=== PATIENT | female | born 1960 | race Caucasian/White ===

== ENCOUNTER 2017-07-27 12:48 | Emergency (ER) | payer OTHER ==
[2017-07-27] MEDS: Ondansetron 4 MG/2 ML SDV IVPUSH ONE (12:56)
[2017-07-27] MEDS: Morphine 10 MG/ML Syringe IVPUSH ONE ×2 (12:57→13:50)
[2017-07-27] MEDS: LORazepam 2 MG/ML SDV IVPUSH ONE (12:58)
[2017-07-27] MEDS: LORazepam 2 MG/ML SDV ONE (12:59)
[2017-07-27] MEDS ORDERED: Sodium Chloride 0.9% 1,000 ML IV SCH (13:00)
[2017-07-27 13:05] LABS: CHLORIDE,CL 103 mmol/L (98-107); SODIUM,NA 140 mmol/L (136-145)
[2017-07-27] MEDS: Midazolam 1 MG/ML 2 ML SDV IVPUSH ONE (13:49)
--- NOTE | 2017-07-27 14:16 | EDM.PDOC ---
ED HPI GENERAL MEDICAL PROBLEM - General Chief Complaint: Trauma Stated Complaint: fall from Horse Time Seen by Provider: 07/27/17 12:58 Source of Information: Reports: Patient, Family History Limitations: Reports: No Limitations - History of Present Illness INITIAL COMMENTS - FREE TEXT/NARRATIVE: Patient brought in by private vehicle for ankle injury complaint. Got on one of her horses bareback. Horse took several steps and crowhopped. Patient slipped off horse and landed on her feet onto the ground, then rolled. Has pain and deformity involving right ankle. Only other pain complaint is mild discomfort in low back. Denies hitting head/LOC. No other injuries reported. - Related Data Allergies Allergy/AdvReac Type Severity Reaction Status Date / Time No Known Allergies Allergy Verified 08/27/13 14:45 Home Meds: Home Meds Venlafaxine HCl [Venlafaxine ER] 75 mg PO DAILY 09/22/13 [History] Past Medical History Psychiatric History: Reports: Other (See Below) (mood disorder) Social & Family History - Family History Family Medical History: Noncontributory - Tobacco Use Smoking Status *Q: Never Smoker - Caffeine Use Caffeine Use: Reports: Coffee - Alcohol Use Alcohol Use History: No - Recreational Drug Use Recreational Drug Use: No Drug Use in Last 12 Months: No Review of Systems - Review of Systems Review Of Systems: See Below Constitutional: Reports: No Symptoms Eyes: Reports: No Symptoms Ears: Reports: No Symptoms Nose: Reports: No Symptoms Mouth/Throat: Reports: No Symptoms Respiratory: Reports: No Symptoms Cardiovascular: Reports: No Symptoms GI/Abdominal: Reports: No Symptoms Genitourinary: Reports: No Symptoms Musculoskeletal: Reports: Back Pain, Foot Pain, Joint Pain Skin: Reports: No Symptoms Neurological: Reports: No Symptoms Psychiatric: Reports: No Symptoms ED EXAM, GENERAL - Physical Exam Exam: See Below Exam Limited By: No Limitations General Appearance: Alert, Moderate Distress Eye Exam: Bilateral Eye: EOMI, PERRL Ears: Normal External Exam, Normal Canal, Hearing Grossly Normal, Normal TMs Nose: Normal Inspection, Normal Mucosa, No Blood Throat/Mouth: Normal Inspection, Normal Lips, Normal Teeth, Normal Gums, Normal Oropharynx, Normal Voice, No Airway Compromise Head: Atraumatic, Normocephalic Neck: Normal Inspection, Supple, Non-Tender, Full Range of Motion Respiratory/Chest: No Respiratory Distress, Lungs Clear, Normal Breath Sounds, No Accessory Muscle Use, Chest Non-Tender Cardiovascular: Normal Peripheral Pulses, Regular Rate, Rhythm, No Edema, No Murmur Peripheral Pulses: 2+: Radial (L), Radial (R), Posterior Tibial (L), Posterior Tibial (R) GI/Abdominal: Normal Bowel Sounds, Soft, Non-Tender, No Distention, Pelvis Stable (Female) Exam: Deferred Rectal (Female) Exam: Deferred Back Exam: Other (discomfort noted lumbar spine). No: CVA Tenderness (L), CVA Tenderness (R), Muscle Spasm, Paraspinal Tenderness Extremities: Normal Capillary Refill, Other (deformity of right ankle noted. Tender. Right leg non-tender proximal to ankle injury. Left lower extremity non -tender/normal ROM. Upper extremities full ROM/Nontender) Neurological: Alert, Oriented, Normal Cognition, No Motor/Sensory Deficits Psychiatric: Normal Affect, Normal Mood Skin Exam: Warm, Dry, Intact, Normal Color ED TRAUMA PROCEDURES - Joint Reduction Site: Other (right ankle) Sedation: Conscious Sedation Pre-Procedure NV Status: Normal Post-Procedure NV Status: Normal Technique: Other (traction) Number of Attempts: 1 Post-Reduction Imaging: Completely Reduced, Fracture Seen Joint Reduction Complications: No - Splinting Right Lower Extremity Splint Site: right ankle Pre-Procedure NV Status: Normal Post-Procedure NV Status: Normal Splint Material: Fiberglass Splint Design: Stirrup Applied & Form Fitted By: Provider Provider Post-Splint Application NV Check: NV Status Normal, Good Position Complications: No Course - Orders/Labs/Meds Orders: Active Orders 24 hr Category Date Time Status Vaccines to be Administered [RC] PER UNIT ROUTINE Care 07/27/17 13:00 Active Ankle Min 3V Rt [CR] Stat Exams 07/27/17 14:05 Taken Ankle wo Cont Rt [CT] Stat Exams 07/27/17 12:50 Taken Lumbar Spine wo Cont [CT] Stat Exams 07/27/17 12:51 Taken Sodium Chloride 0.9% [Normal Saline] 1,000 ml Med 07/27/17 13:00 Active IV ASDIRECTED Medication Orders Sodium Chloride (Normal Saline) 1,000 mls @ 250 mls/hr IV ASDIRECTED JYOTI Labs: Laboratory Tests 07/27/17 07/27/17 07/27/17 Range/Units 12:45 12:45 12:45 WBC 8.2 (4.0-10.2) K/uL RBC 4.40 (3.77-5.09) M/uL Hgb 14.3 (11.7-15.5) g/dL Hct 42.2 (34.0-46.0) % MCV 95.9 (84.0-98.0) fL MCH 32.5 (28.2-33.3) pg MCHC 33.9 (31.7-36.0) g/dL RDW 11.9 (11.2-14.1) % Plt Count 221 (150-350) K/uL Neut % (Auto) 55.7 (45.0-80.0) % Lymph % (Auto) 32.8 (10.0-50.0) % [place] % (Auto) 8.1 (2.0-14.0) % Eos % (Auto) 3.3 (0.0-5.0) % Baso % (Auto) 0.1 (0.0-2.0) % Neut # (Auto) 4.58 (1.40-7.00) K/uL Lymph # (Auto) 2.70 (0.50-3.50) K/uL [place] # (Auto) 0.67 (0.00-1.00) K/uL Eos # (Auto) 0.27 (0.00-0.50) K/uL Baso # (Auto) 0.01 (0.00-0.20) K/uL Sodium 140 (136-145) mmol/L Potassium 3.0 L (3.5-5.1) mmol/L Chloride 103 (98-107) mmol/L Carbon Dioxide 20.6 L (21.0-32.0) mmol/L BUN 14 (7-18) mg/dL Creatinine 1.05 (0.51-1.17) mg/dL Est Cr Clr Drug Dosing TNP Estimated GFR (MDRD) 54 mL/min Glucose 158 H (74-106) mg/dL Hemoglobin A1c 5.9 H (4.3-5.7) % Calcium 9.8 (8.5-10.1) mg/dL Total Bilirubin 0.6 (0.2-1.0) mg/dL AST 24 (15-37) U/L ALT 29 (12-78) U/L Alkaline Phosphatase 72 (46-116) IU/L Total Protein 8.0 (6.4-8.2) g/dL Albumin 3.9 (3.4-5.0) g/dL Meds: Medications Generic Name Dose Route Start Last Admin Trade Name Cielo PRN Reason Stop Dose Admin Sodium Chloride 1,000 mls @ 250 mls/hr 07/27/17 13:00 Normal Saline IV ASDIRECTED JYOTI Discontinued Medications Generic Name Dose Route Start Last Admin Trade Name Freq PRN Reason Stop Dose Admin Diphtheria/Tetanus/Acell Pertussis 0.5 ml 07/27/17 13:00 07/27/17 15:16 Adacel IM 07/27/17 13:01 0.5 ml .ONCE ONE Administration Potassium Chloride 10 meq/ 50 mls @ 50 mls/hr 07/27/17 13:40 07/27/17 15:15 Premix IV 07/27/17 14:39 50 mls/hr ONETIME ONE Administration Lorazepam 1 mg 07/27/17 12:53 07/27/17 12:58 Ativan IVPUSH 07/27/17 12:54 1 mg ONETIME ONE Administration Lorazepam Confirm 07/27/17 12:53 07/27/17 12:59 Ativan Administered 07/27/17 12:54 Not Given Dose 2 mg .ROUTE .STK-MED ONE Midazolam HCl 2 mg 07/27/17 13:43 07/27/17 13:49 Versed 1 Mg/Ml IVPUSH 07/27/17 13:44 2 mg ONETIME ONE Administration Morphine Sulfate 5 mg 07/27/17 12:53 07/27/17 12:57 Morphine IVPUSH 07/27/17 12:54 5 mg ONETIME ONE Administration Morphine Sulfate 5 mg 07/27/17 13:44 07/27/17 13:50 Morphine IVPUSH 07/27/17 13:45 5 mg ONETIME ONE Administration Ondansetron HCl 4 mg 07/27/17 12:54 07/27/17 12:56 Zofran IVPUSH 07/27/17 12:55 4 mg ONETIME ONE Administration Potassium Chloride 40 meq 07/27/17 14:11 07/27/17 15:14 Klor-Con M20 PO 07/27/17 14:12 40 meq ONETIME ONE Administration - Radiology Interpretation Free Text/Narrative:: CT of ankle confirmed comminuted fracture of ankle with dislocation. Good reduction achieved on post reduction plain films. Also appears to have new compression fracture L1 per Radiology. Has old grade 1 Spondylolisthesis L5 - Re-Assessments/Exams Free Text/Narrative Re-Assessment/Exam: Versed/MS/Zofran given. Ankle reduced and splinted. Call placed to [facility] and spoke to from Ortho. Plan made to transfer patient to [facility] for further evaluation and care as well as surgical management of ankle injury. Patient much more comfortable after reduction and splinting of injury. accepting MD at [facility]. K 3.0 IV K ordered. Patient later given PO K also. Departure - Departure Time of Disposition: 15:15 Disposition: DC/Tfer to Acute Hospital 02 Condition: Good Clinical Impression: Comminuted fracture, Hypokalemia, Elevated hemoglobin A1c Dislocation of ankle, right, closed Qualifiers: Encounter type: initial encounter Qualified Code(s): S93.04XA - Dislocation of right ankle joint, initial encounter Compression fracture of L1 lumbar vertebra Qualifiers: Encounter type: initial encounter Fracture type: closed Qualified Code(s): S32.010A - Wedge compression fracture of first lumbar vertebra, initial encounter for closed fracture Fall from horse Qualifiers: Encounter type: initial encounter Qualified Code(s): V80.010A - Animal-rider injured by fall from or being thrown from horse in noncollision accident, initial encounter - Discharge Information Referrals: Katie Felton NP [Primary Care Provider] - Forms: ED Department Discharge - My Orders Last 24 Hours: My Active Orders 07/27/17 12:50 Ankle wo Cont Rt [CT] Stat 07/27/17 12:51 Lumbar Spine wo Cont [CT] Stat 07/27/17 13:00 Vaccines to be Administered [RC] PER UNIT ROUTINE Sodium Chloride 0.9% [Normal Saline] 1,000 ml IV ASDIRECTED 07/27/17 14:05 Ankle Min 3V Rt [CR] Stat - Assessment/Plan Last 24 Hours: My Active Orders 07/27/17 12:50 Ankle wo Cont Rt [CT] Stat 07/27/17 12:51 Lumbar Spine wo Cont [CT] Stat 07/27/17 13:00 Vaccines to be Administered [RC] PER UNIT ROUTINE Sodium Chloride 0.9% [Normal Saline] 1,000 ml IV ASDIRECTED 07/27/17 14:05 Ankle Min 3V Rt [CR] Stat
[2017-07-27] MEDS: Potassium Chloride 20 MEQ Tab.ER PO ONE (15:14)
[2017-07-27] MEDS: Potassium Chloride 10 MEQ in Premix Bag 1 BAG IV ONE (15:15)
[2017-07-27] MEDS: Diphtheria,Pertussis(Acell),Tetanus Vaccine 0.5 ML SDV IM ONE (15:16)
== END 2017-07-27 15:25 ==
LOC: LL.ED 12:48
DX: S82.851A Displaced trimalleolar fracture of right lower leg, initial encounter for closed fracture (principal); V80.010A Animal-rider injured by fall from or being thrown from horse in noncollision accident, initial encounter; Z79.899 Other long term (current) drug therapy; Z23 Encounter for immunization
CPT/HCPCS: 27810; 27818; 36415; 72131; 73610-RT; 73700-RT; 80053; 83036; 85025; 90471; 90715; 96374; 96375; 99285; A9270-GY; J2060; J2250; J2270; J2405; J3480

== ENCOUNTER 2025-02-04 09:53 | Day surgery (SDC) | payer OTHER ==
[~2025-02-04 09:53] MED LIST: Midazolam 1 MG/ML 2 ML SDV ONE; Propofol 200 MG/20 ML SDV ONE; Sodium Chloride 0.9% 10 ML Syringe FLUSH PRN
[2025-02-04] MEDS: Lactated Ringers 1,000 ML IV SCH (10:24)
[2025-02-04] MEDS ORDERED: Propofol 200 MG/20 ML SDV IV ONE (10:36)
[2025-02-04 11:30] VITALS: BP 123/79; PULSE 76
== END 2025-02-04 12:00 | disposition home or self-care (01) ==
LOC: LL.SDS 09:53
PROVIDERS: ATTEND Surgery
DX: Z12.11 Encounter for screening for malignant neoplasm of colon (principal); K63.89 Other specified diseases of intestine; R19.5 Other fecal abnormalities; E78.2 Mixed hyperlipidemia; Z79.82 Long term (current) use of aspirin; Z79.899 Other long term (current) drug therapy
CPT/HCPCS: 45378; J2250; J2704; J7120; 00812